=== PATIENT | male | born 1995 | race Hispanic/Latino ===

== ENCOUNTER 2017-09-05 04:09 | Emergency (ER) | payer SELFPAY ==
[2017-09-05] MEDS ORDERED: LIDOCAINE 1% MPF 5 ML VIAL ONE ×2 (04:56→04:58)
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
[2017-09-05] MEDS ORDERED: TETANUS & DIPHTHERIA TOX,ADULT 0.5 ML VIAL ONE (05:11)
[2017-09-05] MEDS ORDERED: CEFAZOLIN SODIUM 1 GM/VIAL ONE (05:11)
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
== END 2017-09-05 05:54 | disposition home or self-care (01) ==
LOC: ER 04:09
PROC: 0JQJ0ZZ Repair Right Hand Subcutaneous Tissue and Fascia, Open Approach (ICD-10-PCS; principal; 2017-09-05)
DX: S61.411A Laceration without foreign body of right hand, initial encounter (principal); S60.221A Contusion of right hand, initial encounter; X58.XXXA Exposure to other specified factors, initial encounter; Y93.9 Activity, unspecified; Y92.9 Unspecified place or not applicable; Z23 Encounter for immunization
CPT/HCPCS: 90714; 96372; 99284; J0690

== ENCOUNTER 2024-09-15 19:20 | Emergency (ER) | payer SELFPAY ==
[2024-09-15] MEDS ORDERED: FLUORESCEIN SODIUM 1 MG/WRAP ONE (20:43)
[2024-09-15] MEDS ORDERED: TETRACAINE HCL 0.5% 4ML OPTH ONE (20:44)
--- NOTE | 2024-09-15 21:31 | EDPHYS ---
Physician Documentation [facility] Name: Cash Bowers Age: 28 yrs Sex: Male : 1995 Arrival Date: 09/15/2024 Time: 19:20 Bed 10 Private MD: ED Physician Brendan Ching HPI: 09/15 20:05 This 28 yrs old Male presents to ER via Ambulatory with complaints of Foreign cp Body In Eye. 20:05 The patient is experiencing foreign body sensation, pain, redness, to the right eye, cp patient reports he was cutting wood earlier today and feels like piece of wood is under eyelid. Associated signs and symptoms: Pertinent negatives: chills, fever, headache. Patient does not utilize any form of vision correction. Historical: - Allergies: 20:02 No Known Allergies; lg3 - Home Meds: 20:02 None [Active]; lg3 - PMHx: 20:02 None; lg3 - PSHx: 20:02 None; lg3 - Immunization history:: Adult Immunizations up to date. - Infectious Disease History:: Denies. - Social history:: Smoking status: Patient denies any tobacco usage or history of. Patient/guardian denies using alcohol, street drugs. ROS: 20:08 Constitutional: Negative for body aches, chills, fever, poor PO intake, cp 20:08 Eyes: Positive for foreign body sensation, pain, photophobia, redness, of the right cp eye, 20:08 ENT: Negative for drainage from ear(s), ear pain, sore throat, difficulty swallowing, difficulty handling secretions, 20:08 Respiratory: Negative for cough, shortness of breath, wheezing, 20:08 Abdomen/GI: Negative for abdominal pain, nausea, vomiting, and diarrhea, 20:08 Skin: Negative for rash, 20:08 Neuro: Negative for altered mental status, headache, weakness, 20:08 All other systems are negative, Exam: 21:25 Visual Acuity: I have reviewed the nursing documentation. cp 21:25 Head/Face: Normocephalic, atraumatic. 21:25 Constitutional: The patient appears in no acute distress, alert, awake, non-toxic, well developed, well nourished, uncomfortable, 21:25 Eyes: Periorbital structures: appear normal, Pupils: equal, round, and reactive to light and accomodation, Extraocular movements: intact throughout, Conjunctiva: injected, in the right eye, Corneas: abrasion, that is small, on the right, at 10 o'clock, foreign body, is not appreciated, a fluorescein strip employed to appreciate the findings, Sclera: abrasion, of the superior aspect Examination of the other eye reveals no obvious gross abnormality, 21:25 ENT: External ear(s): are unremarkable, Nose: is normal, Mouth: Lips: moist, Oral mucosa: moist, Posterior pharynx: Airway: no evidence of obstruction, patent, 21:25 Neck: ROM/movement: is normal, is supple, without pain, no range of motions limitations, Vital Signs: 20:00 BP 122 / 88; Pulse 64; Resp 16 S; Temp 98.6(O); Pulse Ox 100% on R/A; Weight 68.04 kg lg3 (R); Height 5 ft. 8 in. (R); Pain 7/10; 20:44 BP 117 / 92; Pulse 77; Resp 18; Pulse Ox 100% ; al5 21:50 BP 109 / 79; Pulse 75; Resp 18; Pulse Ox 100% ; al5 20:00 Body Mass Index 22.81 (68.04 kg, 172.72 cm) lg3 20:00 Pain Scale: Adult lg3 Visual Acuity: 20:42 Left Eye Visual acuity 20/20, Pupil size 3 mm, Normal, React To Light, Reactive To al5 Accomodation; Right Eye Visual acuity 20/20, Pupil size 3 mm, Normal, React To Light, Reactive To Accomodation; Both Eyes Visual acuity 20/20; Without Lenses; MDM: 20:00 Medical Screening Exam initiated 20:10 Differential diagnosis: Corneal abrasion of right eye. Corneal ulcer of right eye. cp Foreign body in right eye. Acute iritis of right eye. Infectious conjunctivitis in right eye. 21:30 Data reviewed: vital signs, nurses notes, and as a result, I will discharge patient. 21:30 I considered the following discharge prescriptions or medication management in the emergency department Medications were administered in the Emergency Department. See MAR. Counseling: I had a detailed discussion with the patient and/or guardian regarding the historical points, exam findings, and any diagnostic results supporting the discharge/admit diagnosis, the need for outpatient follow up, an opthalmologist, to return to the emergency department if symptoms worsen or persist or if there are any questions or concerns that arise at home. Response to treatment: the patient's symptoms have markedly improved after treatment, and as a result, I will discharge patient. 09/15 20:01 Order name: Eye Tray; Complete Time: 20:42 cp 09/15 20:01 Order name: Fluoresene Opth strip; Complete Time: 20:44 cp 09/15 20: Order name: Visual Acuity; Complete Time: 20:42 cp Administered Medications: 21:06 Drug: Tetracaine Ophthalmic Drops 0.5 % 1 drops Ophthalmic once {Note: given by al5 [id number].} Route: Ophthalmic; Site: right eye; 21:49 Follow up: Response: No adverse reaction al5 21:48 Drug: Gentamicin Ophthalmic Drops 0.3 % 1 drops Ophthalmic once; instill drops in right al5 eye Route: Ophthalmic; Site: right eye; 21:49 Follow up: Response: No adverse reaction; Medication administered at discharge. al5 21:49 Drug: Hydrocodone-Acetaminophen PO (7.5 mg-325 mg) 1 tabs PO once; RASS on ADMIN: al5 Combtv4, Very Agttd3, Agttd2, Rstlss1, AlertClm0, Drwsy-1, Lt Sdtn-2, Mod Sdtn-3, Dp Sdtn-4, UnArsble-5 Route: PO; 21:49 Follow up: Response: No adverse reaction; Medication administered at discharge. al5 Disposition: 22:21 I was immediately available on-site in the Emergency Department for consultation in the ms3 care of the patient. 09/16 15:27 Chart complete. cp Disposition Summary: 09/15/24 21:31 Discharge Ordered Notes: Location: Home cp Problem: new cp Symptoms: have improved cp Condition: Stable cp Diagnosis - Injury of conjunctiva and corneal abrasion without foreign body, right eye cp Followup: cp - With: Lance Del Rosario MD - When: 1 - 2 days - Reason: Recheck today's complaints Discharge Instructions: - Discharge Summary Sheet cp - Corneal Abrasion cp Forms: - Medication Reconciliation Form cp - Antibiotic Education cp - Prescription Opioid Use cp - Patient Portal Instructions cp - Leadership Thank You Letter cp Prescriptions: - Gentamicin 0.3 % Ophthalmic drops - instill 1 drop OPHTHALMIC route every 4 hours for 7 days; 1 unit; Refills: 0, cp Product Selection Permitted - Ibuprofen 800 mg Oral Tablet - take 1 tablet ORAL route every 8 hours As needed take with food; 30 tablet; cp Refills: 0, Product Selection Permitted Signatures: Iggy Pedro PA PA cp Able, Lacie RN RN lg3 Brendan Ching DO DO ms3 Caitlin Stokes RN RN al5
--- NOTE | 2024-09-15 21:31 | ER ---
Nurse's Notes [facility] Name: Cash Bowers Age: 28 yrs Sex: Male : 1995 Arrival Date: 09/15/2024 Time: 19:20 Bed 10 Private MD: Diagnosis: Injury of conjunctiva and corneal abrasion without foreign body, right eye Presentation: 09/15 20:00 Chief complaint: Patient states: cutting wood this morning and i think a piece went lg3 into my right eye. Coronavirus screen: Client denies travel out of the [place] in the last 14 days. At this time, the client does not indicate any symptoms associated with coronavirus-19. Ebola Screen: No symptoms or risks identified at this time. Initial Sepsis Screen: Does the patient meet any 2 criteria? No. Patient's initial sepsis screen is negative. Does the patient have a suspected source of infection? No. Patient's initial sepsis screen is negative. Risk Assessment: Do you want to hurt yourself or someone else?. Onset of symptoms was September 15, 2024. 20:00 Method Of Arrival: Ambulatory lg3 20:00 Acuity: CRISTIAN 4 lg3 Triage Assessment: 20:02 General: Appears in no apparent distress. uncomfortable, Behavior is calm, cooperative. lg3 Pain: Complains of pain in right eye. EENT: Eyes are tearing on right eye Sclera/Cornea are reddened in right eye Reports blurred vision in right eye pain in right eye. Neuro: No deficits noted. Yanes Agitation-Sedation Scale (RASS): 0 - Alert and Calm Level of Consciousness is awake, alert, obeys commands, Oriented to person, place, time, situation. Cardiovascular: No deficits noted. Denies chest pain, shortness of breath, Capillary refill < 3 seconds Clubbing of nail beds is absent JVD is absent Patient's skin is warm and dry. Respiratory: No deficits noted. Airway is patent Respiratory effort is even, unlabored, Respiratory pattern is regular, symmetrical. GI: No deficits noted. No signs and/or symptoms were reported involving the gastrointestinal system. : No signs and/or symptoms were reported regarding the genitourinary system. Derm: No deficits noted. Skin is intact, is healthy with good turgor, Skin is dry, Skin is normal, Skin temperature is warm. Musculoskeletal: No deficits noted. No signs and/or symptoms reported regarding the musculoskeletal system. Circulation, motion, and sensation intact. Range of motion: intact in all extremities. Historical: - Allergies: 20:02 No Known Allergies; lg3 - Home Meds: 20:02 None [Active]; lg3 - PMHx: 20:02 None; lg3 - PSHx: 20:02 None; lg3 - Immunization history:: Adult Immunizations up to date. - Infectious Disease History:: Denies. - Social history:: Smoking status: Patient denies any tobacco usage or history of. Patient/guardian denies using alcohol, street drugs. Screenin:45 [facility] Fall Risk Assessment (Adult) History of falling in the last 3 months, al5 including since admission No falls in past 3 months (0 pts) Confusion or Disorientation No (0 pts) Intoxicated or Sedated No (0 pts) Impaired Gait No (0 pts) Mobility Assist Device Used No (0 pt) Altered Elimination No (0 pt) Score/Fall Risk Level 0 - 2 = Low Risk Oriented to surroundings, Maintained a safe environment, Hourly rounding (assess needs \T\ fall precautionary measures) done. Abuse screen: Denies threats or abuse. Denies injuries from another. Nutritional screening: No deficits noted. Tuberculosis screening: No symptoms or risk factors identified. Assessment: 20:44 General: Appears in no apparent distress. uncomfortable, Behavior is calm, cooperative. al5 Pain: Complains of pain in right eye. Neuro: Level of Consciousness is awake, alert, obeys commands, Oriented to person, place, time, situation. Cardiovascular: Capillary refill Patient's skin is warm and dry. Respiratory: Airway is patent Respiratory effort is even, unlabored, Respiratory pattern is regular, symmetrical. GI: No signs and/or symptoms were reported involving the gastrointestinal system. : No signs and/or symptoms were reported regarding the genitourinary system. EENT: Reports pain in right eye. Derm: Skin is intact, is healthy with good turgor, Skin is pink, warm \T\ dry. normal. Musculoskeletal: No signs and/or symptoms reported regarding the musculoskeletal system. 21:50 Reassessment: Patient appears in no apparent distress at this time. Patient and/or al5 family updated on plan of care and expected duration. Pain level reassessed. Patient is alert, oriented x 3, equal unlabored respirations, skin warm/dry/pink. Patient states feeling better. Patient states symptoms have improved. Vital Signs: 20:00 BP 122 / 88; Pulse 64; Resp 16 S; Temp 98.6(O); Pulse Ox 100% on R/A; Weight 68.04 kg lg3 (R); Height 5 ft. 8 in. (R); Pain 7/10; 20:44 BP 117 / 92; Pulse 77; Resp 18; Pulse Ox 100% ; al5 21:50 BP 109 / 79; Pulse 75; Resp 18; Pulse Ox 100% ; al5 20:00 Body Mass Index 22.81 (68.04 kg, 172.72 cm) lg3 20:00 Pain Scale: Adult lg3 Visual Acuity: 20:42 Left Eye Visual acuity 20/20, Pupil size 3 mm, Normal, React To Light, Reactive To al5 Accomodation; Right Eye Visual acuity 20/20, Pupil size 3 mm, Normal, React To Light, Reactive To Accomodation; Both Eyes Visual acuity 20/20; Without Lenses; ED Course: 19:22 Patient arrived in ED. jj6 19:56 Iggy Pedro PA is PHCP. cp 19:56 Brendan Ching DO is Attending Physician. cp 20:02 Triage completed. lg3 20:02 Arm band placed on right wrist. lg3 20:37 Caitlin Stokes, IVETTE is Primary Nurse. al5 20:45 Patient has correct armband on for positive identification. Bed in low position. Call al5 light in reach. Side rails up X 1. Provided Education on: plan of care. 20:45 Patient did not have IV access during this emergency room visit. al5 21:20 Assist provider with eye exam of right eye. using fluorescein stain, Performed by Iggy HARLEY Patient tolerated well. 21:30 Lance Del Rosario MD is Referral Physician. cp Administered Medications: 21:06 Drug: Tetracaine Ophthalmic Drops 0.5 % 1 drops Ophthalmic once {Note: given by al5 [id number].} Route: Ophthalmic; Site: right eye; 21:49 Follow up: Response: No adverse reaction al5 21:48 Drug: Gentamicin Ophthalmic Drops 0.3 % 1 drops Ophthalmic once; instill drops in right al5 eye Route: Ophthalmic; Site: right eye; 21:49 Follow up: Response: No adverse reaction; Medication administered at discharge. al5 21:49 Drug: Hydrocodone-Acetaminophen PO (7.5 mg-325 mg) 1 tabs PO once; RASS on ADMIN: al5 Combtv4, Very Agttd3, Agttd2, Rstlss1, AlertClm0, Drwsy-1, Lt Sdtn-2, Mod Sdtn-3, Dp Sdtn-4, UnArsble-5 Route: PO; 21:49 Follow up: Response: No adverse reaction; Medication administered at discharge. al5 Medication: 20:45 VIS not applicable for this client. al5 Outcome: 21:31 Discharge ordered by MD. cp 21:51 Discharged to home ambulatory, with significant other, al5 21:51 Condition: good 21:51 Discharge instructions given to patient, significant other, Instructed on discharge instructions, follow up and referral plans. medication usage, Demonstrated understanding of instructions, follow-up care, medications, Prescriptions given X 2, 21:51 Patient left the ED. al5 Signatures: Iggy Pedro PA PA Shivani Bazan, RN RN lg3 Eusebia Varghese jj6 Caitlin Stokes RN RN al5 Corrections: (The following items were deleted from the chart) 21:51 21:51 Discharge instructions given to patient, significant other, Instructed on al5 discharge instructions, follow up and referral plans. medication usage, Demonstrated understanding of instructions, follow-up care, medications, Prescriptions given X 1, al5
[2024-09-15] MEDS ORDERED: GENTAMICIN 0.3% OPTH DROP 5ML ONE (21:44)
[2024-09-15] MEDS ORDERED: HYDROCODONE/APAP 7.5/325 MG TAB ONE (21:45)
[2024-09-15 22:14] VITALS: TEMP 98.6; O2SAT 100
[2024-09-15 22:17] VITALS: BP 109/79
== END 2024-09-15 21:51 | disposition home or self-care (01) ==
LOC: ER 19:20
DX: S05.01XA Injury of conjunctiva and corneal abrasion without foreign body, right eye, initial encounter (principal)
CPT/HCPCS: 99284